=== PATIENT | female | born 1935 | race Caucasian/White ===

== ENCOUNTER 2017-06-21 08:01 | Emergency (ER) | payer MEDICARE, OTHER ==
[~2017-06-21] VITALS: Ht 162.6 cm; Wt 74.4 kg
[~2017-06-21 08:01] MED LIST: ALAVERT10 M1 PO; ALTACE 5MG CAPSU5 MG PO; AMBIEN5 MG PO; AMITRIPTYLINE 550 MG PO; ARICEPT10 MG PO; ASPIRIN CHILDRE81 MG PO; ASPIRIN325 M1 PO; BETAPACE 80MG T80 MG PO; CARDIZEM CD 12120 MG OR; CARDIZEM CD240 MG PO; CARDIZEM CD300 MG PO; CHEWABLE ASPIRI81 MG PO; CLONIDINE HCL0.1 M1 PO; CLONIDINE0.1 MG PO; CLOPIDOGREL75 MG PO; COLACE GENERIC100 MG OR; DILTIAZEM 180180 MG PO; DILTIAZEM HYDR PO; DIOVAN320 MG PO; Diltiazem180 MG PO; FOLIC ACID800 MCG PO; FORTAMET PO; FORTAMET1000 MG PO; FUROCOT20 MG PO; GLIMEPIRIDE 2MG2 MG PO; GLIPIZIDE2.5 MG PO; HYDROCHLOROTHIA25 M1 PO; IMDUR60 MG PO; LIPITOR10 MG PO; MECLIZINE25 MG PO; METFORMIN ER500 MG PO; METOPROLOL100 MG PO; NITROGLYCERIN0.4 MG SL; PRILOSEC20 M1 PO; PRILOSEC20 MG PO; Prilosec20 MG PO; ROBAXIN-750750 MG PO; SYNTHROID0.137 MG PO; TEKTURNA300 MG PO; TIKOSYN0.25 MG PO; TOPROL XL 100M100 MG PO; UROXATRAL10 MG PO; VITAMIN B11000 MCG/M SC; VITAMIN D2000 I1 PO; WARFARIN SOD5 MG PO; WARFARIN SODIUM10 MG PO; ZANTAC 150150 MG PO; [UNRECOGNIZED DRUG - CODE] SC
[2017-06-21] MEDS ORDERED: KEFLEX 500MG.500 MG PO (08:11)
[2017-06-21 08:14] LABS: HEMOGLOBIN 12.6 g/dL (12.2-16.2); LYMPH # 2.9 K/mm3 (0.7-4.5)
[2017-06-21] MEDS ORDERED: ALDACTONE 25MG25 MG NG (08:14)
--- OUTSIDE RECORDS SUMMARY | 2017-06-21 08:34 | External Medical Summary Rpt ---
Author Author , MARIELENA PEGUERO Address Unknown Phone [email or web address] Team Providers Care Block Stacker Name Role Phone Doris MCCOLLUM, Unavailable Unavailable Doris MCCOLLUM Purpose Continuity of Care Document - 02-12-2013 through 2016 Problems Code Diagnosis DOS Provider Status 244.9 Hypothyroid [facility] [id number] Chest pain [facility] [id number] Osteoarthri [facility] 427.31 Paroxysmal [place] atrial [facility] [id number] Diabetes [place] mellitus [facility] type 2 [facility] [id number] Active [facility] [id number] Chronic [facility] Allergies, Adverse Reactions, Alerts Type Allergy to substance Drug Allergy Propensity to adverse reactions to drug Adverse Reaction to Substance Substance Reaction Severity Yellow Dye Unknown Unknown (Tartrazine, Fd&C No. 5) Hydrogen Peroxide Unknown Unknown Fosinopril Unknown Unknown Yellow Dye Unknown Unknown (Tartrazine, Fd&C No. 5) KAYLEE Inhibitor Unknown Unknown Glyburide Unknown Unknown Lisinopril Unknown Unknown Medications Na ND Rx Da Fi Fi Am Da Di Ph RX Ph St me C No te ll ll ou ys ag ar # ys at s nt no ma ic us Or Da si cy ia de te s n re d KE 00 01 0 No TO 40 -2 RO 93 6- Lo LA 79 20 ng C 50 14 er 30 1 Ac MG ti /M ve L AL DI 51 01 0 No AZ 07 -2 EP 90 6- Lo AM 28 20 ng 5 52 14 er 0 MG Ac ti TA ve BL ET Sa 63 07 0 No li 80 -2 ne 70 1- Lo 10 20 ng Fl 07 13 er us 5 h Ac 10 ti ML ve Sy ri ng e ON 00 07 0 No DA 64 -2 NS 16 1- Lo ET 08 20 ng RO 02 13 er N 5 HC Ac L ti 4 ve MG /2 ML AL FS 04 0 No -1 BL 3- Lo OO 20 ng D 13 er CONDON GA Ac R ti ve As 00 04 0 No pi 18 -1 ri 20 3- Lo n 44 20 ng EC 80 13 er 1 32 Ac 5M ti G ve Ta bl et Di 00 04 0 No lt 45 -1 ia 62 3- Lo ze 61 20 ng m 36 13 er 18 3 0M Ac G ti ER ve Ca ps ul e Do 00 04 0 No cu 18 -1 sa 28 3- Lo te 36 20 ng 38 13 er So 9 di Ac um ti ve 10 0M G Ca ps ul e SY 00 04 0 No NT 07 -1 HR 43 3- Lo OI 72 20 ng D 79 13 er 13 0 7 Ac MC ti G ve TA BL ET ME 51 04 0 No TO 07 -1 SC 90 3- Lo OL 80 20 ng OL 12 13 er 0 TA Ac RT ti RA ve TE 50 MG TA B PA 04 0 No TI -1 EN 3- Lo T' 20 ng S 13 er OW N Ac HO ti ME ve ME DS CO 00 04 0 No UM 05 -1 AD 60 3- Lo IN 17 20 ng 5 27 13 er 0 MG Ac ti TA ve BL ET SO 00 04 1 No DI 40 -1 UM 97 2- Lo 98 20 ng CH 30 13 er LO 9 RI Ac DE ti ve 0. 9% SO ADRIENNE TI ON Sa 63 04 1 No li 80 -1 ne 70 2- Lo 10 20 ng Fl 07 13 er us 5 h Ac 10 ti ML ve Sy ri ng e Ni 00 04 0 No tr 08 -1 og 81 2- Lo ly 55 20 ng ce 24 13 er ri 9 n Ac 1 ti In ve ch Oi nt Ud p TY 50 04 1 No LE 58 -1 NO 00 2- Lo L 45 20 ng EX 10 13 er -S 3 TR Ac ti 50 ve [address] ET Ni 00 04 1 No tr 08 -1 og 81 2- Lo ly 55 20 ng ce 24 13 er ri 9 n Ac 1 ti In ve ch Oi nt Ud p CL 51 04 1 No ON 07 -1 ID 90 2- Lo IN 29 20 ng E 92 13 er HC 0 L Ac 0. ti 1 ve MG TA BL ET Vital Signs 12-20-2013 16:13 Name Value Interpretat Reference Comment ion Range BP 65 mm[Hg] Diastolic BP Systolic 157 mm[Hg] Heart 64 /min Rate/Pulse O2% 98 % Respiratory 20 /min Rate 12-20-2013 14:55 Name Value Interpretat Reference Comment ion Range BP 55 mm[Hg] Diastolic BP Systolic 138 mm[Hg] Heart 65 /min Rate/Pulse O2% 98 % Respiratory 20 /min Rate 06-14-2013 05:39 Name Value Interpretat Reference Comment ion Range BP 87 mm[Hg] Diastolic BP Systolic 157 mm[Hg] Heart 65 /min Rate/Pulse O2% 99 % Respiratory 20 /min Rate 06-14-2013 03:24 Name Value Interpretat Reference Comment ion Range BP 85 mm[Hg] Diastolic BP Systolic 168 mm[Hg] Heart 62 /min Rate/Pulse O2% 98 % Respiratory 20 /min Rate 03-07-2013 14:25 Name Value Interpretat Reference Comment ion Range Body 98.0 [degF] Temperature BP 73 mm[Hg] Diastolic BP Systolic 147 mm[Hg] Heart 65 /min Rate/Pulse Respiratory 16 /min Rate 03-07-2013 12:00 Name Value Interpretat Reference Comment ion Range O2% 95 % 03-06-2013 23:00 Name Value Interpretat Reference Comment ion Range Height 162.56 cm Weight 74.929 kg Measured 03-06-2013 20:37 Name Value Interpretat Reference Comment ion Range Body 99.2 [degF] Temperature BP 92 mm[Hg] Diastolic BP Systolic 187 mm[Hg] Heart 142 /min Rate/Pulse O2% 97 % Respiratory 22 /min Rate Weight 0 [oz_av] Measured 02-12-2013 21:45 Name Value Interpretat Reference Comment ion Range Body 98 [degF] Temperature BP 46 mm[Hg] Diastolic BP Systolic 98 mm[Hg] Heart 84 /min Rate/Pulse O2% 98 % Respiratory 20 /min Rate 02-12-2013 21:08 Name Value Interpretat Reference Comment ion Range BP 28 mm[Hg] Diastolic BP Systolic 113 mm[Hg] Heart 65 /min Rate/Pulse O2% 96 % Respiratory 18 /min Rate Results Labs Lab Lab Date Result Refere Interp Status Commen Order Detail nces retati t Range on Bas Metab 1999 Pnl SerPl (11-27-2016 08:30) Comment: Meter: 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 complet Gap3 017 mmol/L 0 ed SerPl-s 09:51 Cnc BUN/Cre 22.0 7.0-25. complet at 017 0 ed SerPl 09:51 GFR/BSA 53 >60 complet .pred 017 mL/min/ ed SerPl 09:51 1.73 MDRD-Ar VRat Calcium 10.6 8.7-10. complet 017 mg/dL 4 ed XXX-sCn 09:51 c CO2 28.0 20.0-31 complet SerPl-s 017 mmol/L .0 ed Cnc 09:51 Chlorid 107 99-109 complet e 017 mmol/L ed SerPl-s 09:51 Cnc Potassi 5.8 3.5-5.5 complet um 017 mmol/L ed Bld-sCn 09:51 c Sodium 142 132-146 complet Bld-sCn 017 mmol/L ed c 09:51 Creat 1.00 0.60-1. complet Bld-mCn 017 mg/dL 30 ed c 09:51 BUN 22 9-23 complet Bld-mCn 017 mg/dL ed c 09:51 Glucose 150 70-100 complet 017 mg/dL ed Bld-mCn 09:51 c Hgb A1c Bld (11-26-2016 09:51) Comment: The [place] [employer] recommends maintenance of Hemoglobin A1C at 7.0% or lower. Goals for Hemoglobin A1C reduction may need to be modified if hypoglycemia is a problem. Hgb A1c 6.80 % 4.80-5. complet MFr 017 60 ed Bld 09:51 PT PPP (11-26-2016 09:51) Comment: Therapeutic Ranges for INR:2.0-3.0 (PT 20-30) Comment: 2.5-3.5 (PT 25-34) INR PPP 11-26-2 1.56 complet 017 ed 09:51 PT PPP 11-26-2 17.2 9.6-11. complet 017 Seconds 5 ed 09:51 CBC (hemogram) Bld Auto (11-26-2016 09:51) Platele 11-26-2 230 150-450 complet t # Bld 017 10*3/mm ed Auto 09:51 3 PMV Bld 2 10.4 fL 6.0-12. complet Auto 017 0 ed 09:51 RDW RBC 11-26-2 48.2 fl 37.0-54 complet Auto 017 .0 ed 09:51 RDW RBC 11-26-2 14.0 % 11.3-14 complet 017 .5 ed Auto-Rt 09:51 o MCHC 11-26-2 33.4 32.0-36 complet RBC 017 g/dL .0 ed Auto-mC 09:51 nc MCH RBC 11-26-2 31.6 pg 27.0-31 complet Qn 017 .0 ed Auto 09:51 MCV RBC 11-26-2 94.5 fL 80.0-99 complet Auto 017 .0 ed 09:51 Hct VFr 11-26-2 38.0 % 34.5-44 complet Bld 017 .0 ed Auto 09:51 Hgb 11-26-2 12.7 11.5-15 complet Bld-mCn 017 g/dL .5 ed c 09:51 RBC # -02-2 4.02 3.89-5. complet Bld 017 10*6/mm 14 ed Auto 09:51 3 WBC 11-26-2 7.54 3.50-10 complet nRBC 017 10*3/mm .80 ed cor # 09:51 3 Bld PROTIME/INR (06-14-2013 03:53) PROTHRO 06-14- 27.5 9.9-11. complet MBIN 013 SECONDS 6 ed TIME 03:53 INR Bld 2.55 0.9-1.1 complet 013 UNK ed 03:53 COMPREHENSIVE METABOLIC PANEL (06-14-2013 03:20) Glucose 110 74-106 complet 013 mg/dL ed Bld-mCn 03:20 c BUN 24 7-18 complet Bld-mCn 013 mg/dL ed c 03:20 Creat 1.1 0.6-1.0 complet SerPl-m 013 mg/dL ed Cnc 03:20 ESTIMAT 48 50-200 complet ED 013 ML/MIN ed CREATIN 03:20 INE CLEARAN CE GFR 48 59- complet (ESTIMA 013 ML/MIN ed LOLA) 03:20 Sodium 141 136-145 complet SerPl-s 013 mmoL/L ed Cnc 03:20 Potassi 4.7 3.5-5.1 complet um 013 mmoL/L ed SerPl-s 03:20 Cnc Chlorid 106 98-107 complet e 013 mmoL/L ed SerPl-s 03:20 Cnc CO2 28 21.0-32 complet SerPl-s 013 mmoL/L .0 ed Cnc 03:20 Calcium 9.2 8.5-10. complet 013 mg/dL 1 ed SerPl-m 03:20 Cnc Prot 7.3 6.4-8.2 complet SerPl-m 013 gm/dL ed Cnc 03:20 Albumin 4.1 3.4-5.0 complet 013 gm/dL ed SerPl-m 03:20 Cnc Globuli 3.2 1.3-3.2 complet n 013 gm/dL ed Ser-mCn 03:20 c Albumin 1.3 UNK 1.1-1.8 complet /Glob 013 ed SerPl-m 03:20 Rto Bilirub 0.3 0.2-1.0 complet 013 mg/dL ed SerPl-m 03:20 Cnc AST 21 U/L 15-37 complet SerPl-c 013 ed Cnc 03:20 ALT 41 U/L 30-65 complet SerPl-c 013 ed Cnc 03:20 ALP 84 U/L 50-136 complet SerPl-c 013 ed Cnc 03:20 Amylase SerPl-cCnc (06-14-2013 03:20) Amylase 41 U/L 25-115 complet 013 ed SerPl-c 03:20 Cnc LIPASE (06-14-2013 03:20) LIPASE 06-14-2 214 U/L 73-393 complet 013 ed 03:20 BNP Bld-mCnc (06-14-2013 03:20) BNP -21-2 121 0-100 complet Bld-mCn 013 pg/mL ed c 03:20 CBC with AUTO DIFF (06-14-2013 03:20) WBC # 07-21-2 7.3 4.8-10. complet Bld 013 K/MM3 8 ed Auto 03:20 RBC # 21-2 4.66 4.2-5.4 complet Bld 013 M/mm3 ed Auto 03:20 Hgb 06-14-2 13.7 12.2-16 complet Bld-mCn 013 g/dL .2 ed c 03:20 Hct Fr 06-14-2 42.5 % 37.0-47 complet Bld 013 .0 ed 03:20 MCV RBC 06-14-2 91.4 fl 82.2-97 complet 013 .8 ed 03:20 MCH RBC 06-14-2 29.4 pg 27-31.2 complet Qn 013 ed Auto 03:20 MEAN 06-14-2 32.1 31.8-35 complet CORPUSC 013 g/dl .4 ed ULAR 03:20 HGB CONC RDW RBC 06-14-2 14.6 % 11.5-17 complet Auto 013 .5 ed 03:20 Platele 06-14-2 216 142-424 complet t Bld 013 K/mm3 ed Ql 03:20 Manual MEAN 06-14-2 8.8 fl 7.4-10. complet PLATELE 013 4 ed T 03:20 VOLUME Granulo 06-14-2 45.3 % 37.0-80 complet cytes 013 .0 ed Fr Bld 03:20 Auto LYMPH % 06-14-2 46.4 % 10-50.0 complet 013 ed 03:20 Monocyt 21-2 5.3 % 1.7-9.3 complet es Fr 013 ed Bld 03:20 Auto Eosinop 06-14-2 2.5 % 0.1-12. complet hil Fr 013 0 ed Bld 03:20 Auto Basophi 21-2 0.5 % 0.1-2.0 complet ls Fr 013 ed Bld 03:20 Auto Granulo -21-2 3.3 1.8-7.8 complet cytes # 013 K/mm3 ed Bld 03:20 Auto Lymphoc -21-2 3.4 0.7-4.5 complet ytes Fr 013 K/mm3 ed Bld 03:20 Auto Monocyt 07-21-2 0.4 0.1-1.0 complet es # 013 K/mm3 ed Bld 03:20 Auto Eosinop -21-2 0.2 0.0-0.4 complet hil # 013 K/mm3 ed Bld 03:20 Auto Basophi -21-2 0.0 0-0.2 complet ls # 013 K/MM3 ed Bld 03:20 Auto Glucose BldC Glucomtr-nc (03-07-2013 11:30) Glucose 03-07-2 149 70-110 complet BldC 013 mg/dl ed Glucomt 11:30 r-[facility] Glucose BldC Glucomtr-[facility] (03-07-2013 06:25) Glucose 118 70-110 complet BldC 013 mg/dl ed Glucomt 06:25 r-[facility] COMPREHENSIVE METABOLIC PANEL (03-06-2013 20:48) Glucose 163 74-106 complet 013 mg/dL ed Bld-mCn 20:48 c BUN 22 7-18 complet Bld-mCn 013 mg/dL ed c 20:48 Creat 1.4 0.6-1.0 complet SerPl-m 013 mg/dL ed Cnc 20:48 ESTIMAT 44 50-200 complet ED 013 ML/MIN ed CREATIN 20:48 INE CLEARAN CE GFR 37 59- complet (ESTIMA 013 ML/MIN ed LOLA) 20:48 Sodium 140 136-145 complet SerPl-s 013 mmoL/L ed Cnc 20:48 Potassi 4.0 3.5-5.1 complet um 013 mmoL/L ed SerPl-s 20:48 Cnc Chlorid 105 98-107 complet e 013 mmoL/L ed SerPl-s 20:48 Cnc CO2 27 21.0-32 complet SerPl-s 013 mmoL/L .0 ed Cnc 20:48 Calcium 04-12-2 9.2 8.5-10. complet 013 mg/dL 1 ed SerPl-m 20:48 Cnc Prot -12-2 7.1 6.4-8.2 complet SerPl-m 013 gm/dL ed Cnc 20:48 Albumin 04-12-2 4.3 3.4-5.0 complet 013 gm/dL ed SerPl-m 20:48 Cnc Globuli -12-2 2.8 1.3-3.2 complet n 013 gm/dL ed Ser-mCn 20:48 c Albumin -12-2 1.5 UNK 1.1-1.8 complet /Glob 013 ed SerPl-m 20:48 Rto Bilirub 12-2 0.3 0.2-1.0 complet 013 mg/dL ed SerPl-m 20:48 Cnc AST 12-2 34 U/L 15-37 complet SerPl-c 013 ed Cnc 20:48 ALT -12-2 55 U/L 30-65 complet SerPl-c 013 ed Cnc 20:48 ALP -12-2 87 U/L 50-136 complet SerPl-c 013 ed Cnc 20:48 PROTIME/INR (03-06-2013 20:48) PROTHRO -12-2 16.3 9.8-11. complet MBIN 013 SECONDS 0 ed TIME 20:48 INR Bld 03-06-2 1.57 0.9-1.1 complet 013 UNK ed 20:48 CBC with AUTO DIFF (03-06-2013 20:48) WBC # 04-12-2 5.6 4.8-10. complet Bld 013 K/MM3 8 ed Auto 20:48 RBC # 04-12-2 4.36 4.2-5.4 complet Bld 013 M/mm3 ed Auto 20:48 Hgb -12-2 12.9 12.2-16 complet Bld-mCn 013 g/dL .2 ed c 20:48 Hct Fr 03-06-2 39.6 % 37.0-47 complet Bld 013 .0 ed 20:48 MCV RBC 03-06-2 90.8 fl 82.2-97 complet 013 .8 ed 20:48 MCH RBC 12-2 29.7 pg 27-31.2 complet Qn 013 ed Auto 20:48 MEAN 04-12-2 32.7 31.8-35 complet CORPUSC 013 g/dl .4 ed ULAR 20:48 HGB CONC RDW RBC -12-2 15.1 % 11.5-17 complet Auto 013 .5 ed 20:48 Platele 04-12-2 205 142-424 complet t Bld 013 K/mm3 ed Ql 20:48 Manual MEAN 12-2 8.3 fl 7.4-10. complet PLATELE 013 4 ed T 20:48 VOLUME Granulo 04-12-2 44.9 % 37.0-80 complet cytes 013 .0 ed Fr Bld 20:48 Auto LYMPH % 04-12-2 46.2 % 10-50.0 complet 013 ed 20:48 Monocyt 04-12-2 5.4 % 1.7-9.3 complet es Fr 013 ed Bld 20:48 Auto Eosinop 04-12-2 3.0 % 0.1-12. complet hil Fr 013 0 ed Bld 20:48 Auto Basophi 04-12-2 0.5 % 0.1-2.0 complet ls Fr 013 ed Bld 20:48 Auto Granulo 04-12-2 2.5 1.8-7.8 complet cytes # 013 K/mm3 ed Bld 20:48 Auto Lymphoc 04-12-2 2.6 0.7-4.5 complet ytes Fr 013 K/mm3 ed Bld 20:48 Auto Monocyt 04-12-2 0.3 0.1-1.0 complet es # 013 K/mm3 ed Bld 20:48 Auto Eosinop 04-12-2 0.2 0.0-0.4 complet hil # 013 K/mm3 ed Bld 20:48 Auto Basophi 04-12-2 0.0 0-0.2 complet ls # 013 K/MM3 ed Bld 20:48 Auto BASIC METABOLIC PANEL (02-12-2013 20:00) Glucose 02-12-2 130 74-106 complet 013 mg/dL ed Bld-mCn 20:00 c BUN 02-12-2 17 7-18 complet Bld-mCn 013 mg/dL ed c 20:00 Creat 02-12-2 1.3 0.6-1.0 complet SerPl-m 013 mg/dL ed Cnc 20:00 ESTIMAT 42 50-200 complet ED 013 ML/MIN ed CREATIN 20:00 INE CLEARAN CE GFR 39 59- complet (ESTIMA 013 ML/MIN ed LOLA) 20:00 Sodium 138 136-145 complet SerPl-s 013 mmoL/L ed Cnc 20:00 Potassi 4.5 3.5-5.1 complet um 013 mmoL/L ed SerPl-s 20:00 Cnc Chlorid 103 98-107 complet e 013 mmoL/L ed SerPl-s 20:00 Cnc CO2 25 21.0-32 complet SerPl-s 013 mmoL/L .0 ed Cnc 20:00 Calcium 9.3 8.5-10. complet 013 mg/dL 1 ed SerPl-m 20:00 Cnc PROTIME/INR (02-12-2013 20:00) PROTHRO 18.6 9.8-11. complet MBIN 013 SECONDS 0 ed TIME 20:00 INR Bld 1.80 0.9-1.1 complet 013 UNK ed 20:00 Encounters Encounter Start End Date Code Location Performer Type Date Emergency PIYUSH Michelle MD (ER) 4 14:54 4 16:14 [facility] Emergency PIYUSH Sarabia MD (ER) 3 03:15 3 05:40 [facility] Inpatient ROB Abarca ([place]) 3 20:53 3 14:25 [facility] Emergency PIYUSH Tarango (ER) 3 20:14 3 21:44 [facility] Pedro Gómez
--- OUTSIDE RECORDS SUMMARY | 2017-06-21 08:34 | External Medical Summary Rpt ---
Author Author , MARIELENA PEGUERO Address Unknown Phone [email or web address] Care Team Providers Care Schedule Checker Name Role Phone Doris MCCOLLUM, Unavailable Unavailable Doris MCCOLLUM Purpose Continuity of Care Document - 02-12-2013 through 2016 Problems Code Diagnosis DOS Provider Status 244.9 Hypothyroid [facility] [id number] Chest pain [facility] [id number] Osteoarthri [facility] 427.31 Paroxysmal [facility] atrial [facility] [id number] Diabetes [facility] mellitus [facility] type 2 [facility] [id number] Active [facility] [id number] Chronic [facility] Allergies, Adverse Reactions, Alerts Type Allergy [...] 51 04 0 No TO 07 -1 WI 90 3- Lo OL 80 20 ng [...] 1999 Pnl SerPl (11-27-2016 08:30) Comment: Meter: [id number] [employer] 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 Leandro Bolden Glucose 104 70-130 complet BldC [...] Hgb A1c Bld (11-26-2016 09:51) Comment: The [place] [employer] recommends maintenance of Hemoglobin A1C [...] complet BldC 013 mg/dl ed Glucomt 11:30 r-[facility] [address] Glucose BldC Glucomtr-[facility] [address] (03-07-2013 06:25) Glucose 118 70-110 complet BldC 013 mg/dl ed Glucomt 06:25 r-[facility] [address] COMPREHENSIVE METABOLIC PANEL (03-06-2013 20:48) Glucose 163 [...] Michelle MD (ER) 4 14:54 4 16:14 [facility] Emergency PIYUSH Sarabia MD (ER) 3 03:15 3 05:40 [facility] Inpatient ROB Abarca ([place]) 3 20:53 3 14:25 [facility] Emergency PIYUSH Tarango (ER) 3 20:14 3 21:44 [facility] Pedro Gómez
--- OUTSIDE RECORDS SUMMARY | 2017-06-21 08:35 | External Medical Summary Rpt ---
Author Author [employer] Organization [employer] Address Unknown Phone Unavailable Purpose Continuity of Care Document - through 2016
--- OUTSIDE RECORDS SUMMARY | 2017-06-21 08:35 | External Medical Summary Rpt ---
Author Author [employer], [employer] Organization [employer] Address Unknown Phone Unavailable Results Basic metabolic panel in Blood Observa Value Referen Units Interpr Notes Date tion ce etation Range Urea 7 - 18 mg/dL High No Jun 05 nitrogen informati 2016 [Mass/vol on in 10:00 AM ume] in source Serum or data Plasma Calcium 8.5 - mg/dL Normal No Jun 05 [Mass/vol 10.1 informati 2016 ume] in on in 10:00 AM Serum or source Plasma data Chloride 98 - 107 mmoL/L Normal No Jun 05 [Moles/vo informati 2016 lume] in on in 10:00 AM Serum or source Plasma data Carbon 21.0 - mmoL/L Normal No Jun 05 dioxide, 32.0 informati 2016 total on in 10:00 AM [Moles/vo source lume] in data Serum or Plasma Creatinin 0.55 - mg/dL High No Jun 05 e 1.02 informati 2016 [Mass/vol on in 10:00 AM ume] in source Serum or data Plasma Estimated 59- ML/MIN Low REFERENCE Jun 05 RANGE: 2017 glomerula >60 10:00 AM r ML/MIN/1. filtratio 73 SQUARE n rate METERSIf (GF this patient is -A merican, then multiply theresult by 1.210. Glucose 74 - 106 mg/dL High No Jun 05 [Mass/vol informati 2016 ume] in on in 10:00 AM Serum or source Plasma data Potassium 3.5 - 5.1 mmoL/L Normal No Jun 05 informati 2016 [Moles/vo on in 10:00 AM lume] in source Serum or data Plasma Sodium 136 - 145 mmoL/L Normal No Jun 05 [Moles/vo informati 2017 lume] in on in 10:00 AM Serum or source Plasma data
--- OUTSIDE RECORDS SUMMARY | 2017-06-21 08:35 | External Medical Summary Rpt ---
Demographics Preferred Language Nepali Marital Status Unknown Roman Catholic Affiliation Unknown Race Unknown Ethnic Group Unknown Author Author , MARIELENA PEGUERO Address Unknown Phone Immunization Unable to retrieve immunization data due to connection failure with Immunization Registry. Please try again later.
--- OUTSIDE RECORDS SUMMARY | 2017-06-21 08:35 | External Medical Summary Rpt ---
Demographics Preferred Language Tamazight Marital Status Unknown Tenriism Affiliation Unknown Race Unknown Ethnic Group Unknown Author Author , MARIELENA PEGUERO Address Unknown Phone Immunization Unable to retrieve immunization data due to connection failure with Immunization Registry. Please try again later.
--- NOTE | 2017-06-21 08:37 | RADIOLOGY REPORT PS360 ---
CT HEAD W/O CONTRAST HISTORY: WEAKNESS, NUMBNESS AROUND LIPS ORDERING PHYSICIAN: Ruth Merida MD PATIENT AGE: 82 years COMPARISON: None TECHNIQUE: Axial images obtained without contrast. Brain and bone windows reviewed. FINDINGS: No midline shift, mass effect, intracranial hemorrhage, hydrocephalus, or extra-axial fluid collection is evident. Nonspecific hypoattenuation noted in the periventricular and subcortical regions consistent with microangiopathic changes. The calvarium has an unremarkable appearance. No mastoid effusion. The visualized paranasal sinuses are unremarkable. IMPRESSION: No acute intracranial pathology There is no evidence of intracranial hemorrhage, focal mass, or acute territorial infarction. A negative CT does not exclude an acute CVA. A follow-up head CT or MRI is recommended if neurological symptoms warrant .
--- NOTE | 2017-06-21 09:05 | Emergency Room Report ---
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 PER EMS REPORT PT WAS ABLE TO AMBULATE AT HER RESIDENCE. 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 N Clinical Suspician of Infection? N Mental Status: 1 - Regular (Normal Baseline) Sepsis Risk:Low Sepsis Risk Have you (or family members/close friends) recently traveled outside the [place]? N If Yes, where/when: Have you had exposure to infectious disease within the past month? N TB? Other? Specify: Patient states she awakened at six this morning, and felt fine. She took her thyroid medication per usual, then went back to bed. She tried to get out of bed at seven AM but her left leg was numb and weak. She called her daughter, who came by the house within fifteen minutes, and the symptoms, including diffuse lip numbness, had resolved and the patietn was able to ambulate with her walker. EMS was called and they report a normal FSBS and that the patient neurologically was intact. The patient reports some palpitations on occasion, has a PM, which was just assess by her custodian athletic equipment in [facility] three days ago as a routine check. She denies chest pain; no syncope; no diplopia; no speech changes. She was seen yesterday by Dr. Abarca for a right great toe infection, placed on Keflex, and is responding very well with diminished redness since yesterday. Baseline she has peripheral neuropathy of the feet and does not have good sensation. She has no complaints on arrival to the ED, and reports an extensive hx of TIA. She is on Coumadin. She has a hx of chronic hyperkalemia, and her SBP was in the 150's to 200's when last seen in the ED in 2014. ALLERGIES Coded Allergies: KAYLEE Inhibitors (06/21/17) aspirin (06/21/17) fosinopril (06/21/17) glyburide (06/21/17) hydrogen peroxide (06/21/17) lisinopril (06/21/17) yellow dye (06/21/17) Home Medications Active Scripts NITROGLYCERIN (Nitrostat) 0.4 MG SL PRN #20 TAB Ref 2 Prov: 03/07/13 Reported Medications LEVOTHYROXINE SOD (Synthroid) 0.137 MG PO DAILY Loratadine (Alavert) 10 MG PO DAILY ALISKIREN HEMIFUMARATE (Tekturna) 300 MG PO QHS CLONIDINE HCL (Clonidine 0.1MG Tab) 0.1 MG PO BID Dofetilide (Tikosyn) 0.25 MG PO BID Metoprolol Tartrate (Metoprolol) 200 MG PO BID METFORMIN HCL (Metformin HCl ER) 1,000 MG PO BID Glimepiride (Glimepiride 2MG Tablet) 4 MG PO DAILY Ranitidine Hcl (Zantac) 150 MG PO DAILY WARFARIN SOD (Warfarin 5MG) 5 MG PO QHS Cholecalciferol (Vitamin D) 1,000 IUNITS PO DAILY DILTIAZEM HCL (Diltiazem ER) 360 MG PO DAILY Amitriptyline Hcl (Amitriptyline) 50 MG PO QHS CEPHALEXIN (Keflex 500MG Capsule) 500 MG PO BID #20 Spironolactone (Aldactone) 12.5 MG NG DAILY #30 History Medical History General Angina: Yes [place]: No Hypertension? Yes Hyperlipidemia? No CHF? No DVT? No PE? No COPD? No Asthma? No Anemia? No GERD? Yes Gastric ulcers? No GI Bleed? No Hernia? No Thyroid Problems? Yes Hypothyroidism? Yes CVA? Yes Seizures? No Diabetes? Yes Insulin Dependent: No Insulin Pump: No Home FSBS? Yes Renal Insuffiency? No End Stage Renal Disease? No UTI? Yes Stones? No GB Disease: Yes Hepatitis? No Arthritis? Yes Migraines? No Cataracts? Yes Glaucoma? No MRSA? No HIV? No TB? No Anxiety? Yes Depression? No Cancer? No More? 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 Family History Family Hx Diabetes Yes CAD No Hypertension Yes Hyperlipidemia No Cancer No TB No Social History Smoking Hx Smoker: Never Smoker Tobacco: No Alcohol Alcohol: No Review of Systems All Other Systems Reviewed and Negative Cardiovascular denies see HPI Skin see HPI Psychiatric/Neurological see HPI, pre-existing deficit Physical Exam Vital Signs Vital Signs Date Time Temp Pulse Resp B/P Pulse O2 O2 Flow FiO2 Ox Delivery Rate 06/21 0900 65 18 138/69 96 06/21 0801 98.0 66 18 158/78 97 General Appearance normal appearance, WD/WN, no apparent distress Eye Exam - bilateral eye normal exam, bilateral eye PERRL, bilateral eye EOMI (no diplopia or field cuts) Neck normal inspection, non-tender, supple, full range of motion Respiratory Status Yes: trachea midline, chest symmetrical, non tender chest. No: respiratory distress, tender on palpation, use of accessory muscles, pain on inspiration, pain on expiration, productive cough, non productive cough. Lung Sounds bilateral: normal breath sounds, lungs clear. Cardiovascular normal exam, regular rate/rhythm, no peripheral edema, no gallop, no JVD, no murmur, no rub, normal peripheral pulses Peripheral Pulses Peripheral Pulses 2+ dorsalis pedis (R), 2+ dorsalis pedis (L) Gastrointestinal normal bowel sounds, normal exam, non tender, soft, no organomegaly, no pulsatile mass, no guarding, no rebound Extremities non-tender, normal range of motion, normal inspection, normal capillary refill, no calf tenderness, no pedal edema Strength 4 Lower Ext (L), 4 Lower Ext (R) (uses a walker), 5 Upper Ext (L), 5 Upper Ext ( R) Neurologic alert, shower room attendant II-XII nml as tested, normal exam, oriented x 3, Baseline peripheral neuropathy; baseline leg weakness (needs walker); no unilateral findings; finger to nose w/o dysmetria; no tremor; speech clear and fluent, sensate throughout other than baseline neuropathy. NIHSS 0 (did not include baseline issues). Glascow Coma Scale Glascow Coma Scale Response Value EYE response: 4 Spontaneously 4 MOTOR response: 6 OBEYS 6 VERBAL response: 5 Oriented & Converses 5 Total 15 Reflexes DTR 1+ ankle (R), 1+ ankle (L) (extensive DJD) Skin intact, normal color, warm/dry, right great toe no drainage, extremely minimal, if any, erythema. Medical Decision Making LABS/Meds/Orders Pt receiving controlled substance in ED? No Jad was queried for this patient? No Results/Orders Laboratory Tests 06/21/17 0840: Potassium 4.8, PT 19.4 H, INR 1.79 H 06/21/17 0800: Troponin I < 0.02 06/21/17 0800: Sodium 140, Potassium 5.2 H, Chloride 105, Carbon Dioxide 28, BUN 21 H, Creatinine 1.0, Estimated Creat Clear 49 L, Estimated GFR (MDRD) 53 L, Glucose 141 H, Calcium 9.4, Total Bilirubin 0.2, AST 25, ALT 35, Alkaline Phosphatase 75, Total Protein 7.4, Albumin 4.1, Globulin 3.3 H, Albumin/Globulin Ratio 1.2, WBC 7.1, RBC 4.06 L, Hgb 12.6, Hct 38.8, MCV 95.5, RDW 14.0, Plt Count 220, MPV 7.8, Gran % 51.7, Gran # 3.7, Lymphocytes % 40.0, Monocytes % 5.1, Eosinophils % 2.6, Basophils % 0.6, Lymphocytes # 2.9, Monocytes # 0.4, Eosinophils # 0.2, Basophils # 0.1, PUBS MCHC 32.6, MCH 31.1 Current Medication Orders Sig/Santy Start time Last Medication Dose Route Stop Time Status Admin Sodium Chloride 10 ML PRN PRN 06/21 815 AC IV 06/22 802 Orders Procedure Date/time Status DIET-NOTHING BY MOUTH 06/21 L Active PROTHROMBIN TIME 06/21 0832 Complete POTASSIUM 06/21 832 Complete 12 LEAD EKG-BESSON (INITIAL) 06/21 830 Active ELECTROCARDIOGRAM REQUEST 06/21 830 Active TROPONIN I 06/[address] HEAD REQ 06/21 803 Complete IV SALINE LOCK 06/21 803 Active CBC WITH AUTO DIFF 06/21 803 Complete CHEM 12 PROFILE 06/21 803 Complete CM/EKG CM/EKG EKG rate, NSR, rhythm, no evid. of ischemic chgs, no ectopy, normal QRS, normal ID, normal EKG (paced 65 RBBBB) XRAY/CT/US XRAY/CT/US CT head CT interpretation by reviewed by me (report reviewed) Time results known: 829 CT Results neg acute Progress ED Progress Notes 1 Date 06/21/17 Time 09 Comment Initial K borderline elevated but sample used had been drawn out in the field by EMS, so unknown if hemolyzed; will redraw and recheck K. ED Progress Notes 2 Date 06/21/17 Time 912 Comment Repeat K was 4.8, SBP 138, neurologically intact, d/c home stable. INR slightly subtherapeutic but was checked at PCP office yesterday and was 2.4 so march f/u with Dr. Abarca for further guidance. Departure Departure Time of Disposition 913 Disposition DC Home or Self Care(routine) Clinical Impression Primary Impression: TIA (transient ischemic attack) Qualifiers: Transient cerebral ischemia type: unspecified Qualified Code: G45.9 - Transient cerebral ischemic attack, unspecified Condition STABLE Referrals Silvestre Abarca MD (PCP/Family) Patient Instructions Transient Ischemic Attack Additional Instructions Frequent neurological checks by family during the day while awake; close follow up with Dr. Abarca regarding slightly low INR today (was normal yesterday) and to recheck blood pressure. Continue all current medications. Discharge Counseling Counseled pt/family regarding diagnosis, test results, medications/RX, home care, follow up needs ED Critical Care Critical Care No at 0915
[2017-06-21 09:34] VITALS: BP 157/74
== END 2017-06-21 09:35 | disposition home or self-care (01) ==
LOC: ER 08:01
PROVIDERS: Emergency Medicine
DX: G45.8 Other transient cerebral ischemic attacks and related syndromes (principal); I10 Essential (primary) hypertension; K21.9 Gastro-esophageal reflux disease without esophagitis; E11.9 Type 2 diabetes mellitus without complications; Z79.01 Long term (current) use of anticoagulants

== ENCOUNTER → 2017-08-27 | Outpatient (CLI) | payer MEDICARE, OTHER ==
[~2017-08-27] MED LIST changes: +ALDACTONE 25MG25 MG NG; +KEFLEX 500MG.500 MG PO
--- NOTE | 2017-08-27 15:53 | RADIOLOGY REPORT PS360 ---
ARTERIAL/[id number] COMPARISON: None HISTORY: Diabetic, history of peripheral vascular disease, hypertension, previous TIA TECHNIQUE: Segmental blood pressures in the lower legs and Doppler waveform evaluation FINDINGS: The right brachial pressure is 146. Pressures in the right leg show the thigh be 170. The calf pressure is noncompressible likely due to significant arterial calcification. The posterior tibial pressure is 171 dorsalis pedis 140 and digital pressure 112. Doppler waveforms appear normal, the right LILI is 1. 1. The left brachial pressure is 152. Pressures left leg show the thigh be 172, the calf is noncompressible. The posterior tibial pressure is 190 and dorsalis pressure 194 and digital pressure 102. Doppler waveforms are normal and the left LILI is 1.3. IMPRESSION: 1. Normal ABIs bilaterally. 2. Borderline low toe brachial indices bilaterally likely secondary to small vessel disease in this patient with known diabetes
--- NOTE | 2017-08-27 15:53 | RADIOLOGY REPORT PS360 ---
ARTERIAL/[id number] COMPARISON: None HISTORY: Diabetic, history of peripheral vascular disease, hypertension, previous TIA TECHNIQUE: Segmental blood pressures in the lower legs and Doppler waveform evaluation FINDINGS: The right brachial pressure is 146. Pressures in the right leg show the thigh be 170. The calf pressure is noncompressible likely due to significant arterial calcification. The posterior tibial pressure is 171 dorsalis pedis 140 and digital pressure 112. Doppler waveforms appear normal, the right LILI is 1. 1. The left brachial pressure is 152. Pressures left leg show the thigh be 172, the calf is noncompressible. The posterior tibial pressure is 190 and dorsalis pressure 194 and digital pressure 102. Doppler waveforms are normal and the left LLII is 1.3. IMPRESSION: 1. Normal ABIs bilaterally. 2. Borderline low toe brachial indices bilaterally likely secondary to small vessel disease in this patient with known diabetes
== END ==
LOC: RT 12:00
DX: I73.9 Peripheral vascular disease, unspecified (principal); E11.9 Type 2 diabetes mellitus without complications

== ENCOUNTER → 2017-11-06 | Outpatient (CLI) | payer MEDICARE, OTHER ==
[~2017-11-06] MED LIST changes: +LEVOTHYROXIN0.125 MG
== END ==
LOC: LAB 14:38
DX: E87.5 Hyperkalemia (principal)